=== PATIENT | male | born 1950 | race Caucasian/White ===

== ENCOUNTER 2016-08-08 22:10 | Emergency (ER) | payer MEDICARE ==
[2016-08-08] MEDS ORDERED: NS 0.9% 1000 ML* 1,000 ML IV ONE (23:45)
[2016-08-09 00:13] LABS: Hematocrit 42 % (42-52); Hemoglobin 14.1 g/dl (14.0-18.0); Mean Corpuscular HGB Conc 34 g/dl (31-36); Mean Corpuscular Hemoglobin 32 pg (27-31); Mean Corpuscular Volume 93 fL (80-94); Mean Platelet Volume 9 um3 (7.4-10.4); Red Blood Count 4.48 10^6/ul (4.0-5.4); Red Cell Distribution Width 13 % (10.5-15); White Blood Count 11.3 10^3/ul (3.5-10.8)
[2016-08-09 00:26] LABS: Alcohol < 10 mg/dL (<10)
[2016-08-09 00:28] LABS: ALT 27 U/L (7-52); AST 28 U/L (13-39); Albumin 4.1 g/dL (3.2-5.2); Alkaline Phosphatase 44 U/L (34-104); Anion Gap 8 mmol/L (2-11); BUN/Creatinine Ratio 17.8 (8-20); Blood Urea Nitrogen 18 mg/dL (6-24); CO2 Carbon Dioxide 24 mmol/L (22-32); Calcium 9.3 mg/dL (8.6-10.3); Chloride 104 mmol/L (101-111); Creatine Kinase 472 U/L (10-223); EGFR Non-African American 73.9 (>60); Globulin 3.3 g/dL (2-4); Glucose 124 mg/dL (70-100); Lipase 36 U/L (11.0-82.0); Potassium 3.8 mmol/L (3.5-5.0); Sodium 136 mmol/L (133-145); Total Protein 7.4 g/dL (6.4-8.9)
[2016-08-09] MEDS ORDERED: Iohexol 300* (CONTRAST) 10 ML SDV IV ONE (00:29)
[2016-08-09 00:31] LABS: Troponin I 0.01 ng/mL (<0.04)
[2016-08-09] MEDS ORDERED: oxyCODONE/Acetamin 5/325 MG* TAB PO ONE (01:56)
[2016-08-09 02:02] VITALS: BP 160/86
--- NOTE | 2016-08-09 02:52 | ED ---
Darrin Hubbard Anna, scribed for Arturo Mercado on 08/08/16 at 2353 . Adult Trauma - HPI Summary HPI Summary: Patient is a 66 y/o male coming to [facility] presenting with the sudden onset of constant, right rib pain that began when a 1200 lb cow fell on him this evening. He describes the severity of the pain as 5/10. Denies neck pain, CP, back pain, pelvic pain, ORTIZ, LOC. He reports no medical problems. - History of Current Complaint Chief Complaint: EDTraumaMultiple Stated Complaint: RIB AND RIGHT SIDE PAIN-COW ROLLED ACROSS PT Time Seen by Provider: 08/08/16 23:39 Hx Obtained From: Patient Loss of Consciousness: no loss of consciousness Onset/Duration: Started Hours Ago Onset Severity: Moderate Current Severity: Moderate Pain Intensity: 5 Pain Scale Used: 0-10 Numeric Location: Abdomen/Pelvis Associated Signs & Symptoms: Negative: Loss of Consciousness - Allergy/Home Medications Allergies/Adverse Reactions: Allergies Allergy/AdvReac Type Severity Reaction Status Date / Time No Known Allergies Allergy Verified 01/11/14 10:08 PMH/Surg Hx/FS Hx/Imm Hx Endocrine/Hematology History: Denies: Hx Diabetes Cardiovascular History: Denies: Hx Congestive Heart Failure, Hx Hypertension History: Denies: Hx Renal Disease Infectious Disease History: Denies: Traveled Outside the [place] in Last 30 Days - Family History Known Family History: Negative: Hypertension, Diabetes - Social History Alcohol Use: Occasionally Substance Use Type: Reports: None Smoking Status (MU): Never Smoked Tobacco Review of Systems Negative: Chest Pain Positive: Arthralgia - right rib pain Negative: Headache, Syncope All Other Systems Reviewed And Are Negative: Yes Physical Exam Triage Information Reviewed: Yes Vital Signs On Initial Exam: Initial Vitals Temp Pulse Resp BP Pulse Ox 98.6 F 72 18 129/62 97 08/08/16 22:31 08/08/16 22:31 08/08/16 22:31 08/08/16 22:31 08/08/16 22:31 Vital Signs Reviewed: Yes Appearance: Positive: Well-Appearing, No Pain Distress Skin: Positive: Warm, Skin Color Reflects Adequate Perfusion Head/Face: Positive: Normal Head/Face Inspection Eyes: Positive: EOMI, PIYUSH ENT: Positive: Normal ENT inspection Neck: Positive: Supple, Nontender Respiratory/Lung Sounds: Positive: Clear to Auscultation, Breath Sounds Present Cardiovascular: Positive: RRR Abdomen Description: Positive: Soft, Other: - Tender right chest, RUQ abd, RLQ abd Bowel Sounds: Positive: Present Musculoskeletal: Positive: Normal, Strength/ROM Intact Neurological: Positive: Normal, Sensory/Motor Intact, Alert, Oriented to Person Place, Time Diagnostics - Vital Signs Vital Signs Temp Pulse Resp BP Pulse Ox 08/08/16 22:31 98.6 F 72 18 129/62 97 - Laboratory Result Diagrams: 08/08/16 23:47 08/08/16 23:47 Lab Statement: Any lab studies that have been ordered have been reviewed, and results considered in the medical decision making process. - CT CHEST/ABD/PEL CT CT Interpretation: Positive (See Comments) - IMPRESSION: FRACTURES OF THE FIFTH AND SIXTH ANTERIOR RIBS ON THE RIGHT. NO OTHER TRAUMATIC INJURIES IDENTIFIED IN THE CHEST, ABDOMEN, OR PELVIS. CT Interpretation Completed By: Radiologist - SPIKE MACHINE OPERATOR - EKG 0032 Cardiac Rate: NL - 78 bpm EKG Rhythm: Sinus Rhythm EKG Interpretation: RBBB. No STEMI. Adult Trauma Course/Dx - Course Course Of Treatment: This is a 66 y/o male presenting with right CP. A bufallo fell on top of him. X-rays were done and he has 5th and 6th right rib fractures. He will be diagnosed with 5th and 6th right rib fractures and a contusion of the right chest. He will be sent home with pain medication. - Diagnoses Provider Diagnoses: 5th and 6th right rib fracture, contusion right chest Discharge - Discharge Plan Condition: Stable Disposition: HOME Prescriptions: Ibuprofen TAB* [Motrin TAB* 600 MG] 600 mg PO Q8H PRN #30 tab PRN Reason: Pain oxyCODONE/Acetamin 5/325 MG* [Percocet 5/325 TAB*] 1 tab PO Q8H PRN #21 tab MDD 3 PRN Reason: Pain Patient Education Materials: Rib Fracture (ED) Referrals: No Primary Care Phys,NOPCP [Primary Care Provider] - The documentation as recorded by the Darrin cutler Anna accurately reflects the service I personally performed and the decisions made by , Arturo Mercado.
--- NOTE | 2016-08-09 11:09 | RAD ---
INDICATION: Right rib pain after a 1200 lb cow landed on the patient. COMPARISON: CT abdomen pelvis dated January 11, 2014 TECHNIQUE: Multidetector CT images were obtained from the lung apices to the ischial tuberosities with 148 mL Omnipaque 300IV and oral contrast. CHEST: There are minimally displaced fractures of the third (image 27), fourth (image 35) fifth and sixth (image 41) right ribs. The lungs are grossly clear without nodules, masses or other focal abnormality. There are no significant pleural effusions bilaterally. The heart and thoracic aorta are normal in size and morphology. There is no mediastinal or hilar lymphadenopathy. ABDOMEN \T\ PELVIS: Similar the previous CT examination there are fluid density cyst in the right lobe of the liver. Smaller subcentimeter hypodensities are seen as well but are too small to characterize further. These are also stable. The liver is otherwise homogenous in attenuation but slightly enlarged up to 22.4 cm. There is no evidence of acute traumatic bleed of the liver. The spleen, pancreas and adrenal glands are grossly normal in appearance. Hyperattenuating stones are noted in the dependent gallbladder. The gallbladder is otherwise normal in appearance. The kidneys are normal in appearance without focal mass, calcification or signs of hydronephrosis. The normal air-filled appendix is identified in the right lower quadrant (image 54) The small and large bowel are not distended. There is no gross retroperitoneal or mesenteric lymphadenopathy. The pelvic viscera is normal in appearance. A small fat-containing inguinal hernias noted on the right. The abdominal aorta and iliac arteries are normal in course and diameter. Multilevel degenerative changes of the thoracic and lumbar spine include loss of intervertebral disc height, anterior marginal osteophyte formation and multilevel lumbar vacuum disc phenomenon. IMPRESSION: 1. Minimally displaced fractures involving the anterior lateral right 3rd-6th ribs without CT evidence of solid organ injury or internal hemorrhage. 2. Chronic and degenerative changes as described in the body the report.
== END 2016-08-09 02:45 | disposition home or self-care (01) ==
LOC: ED 22:10
DX: S22.41XA Multiple fractures of ribs, right side, initial encounter for closed fracture (principal); S20.211A Contusion of right front wall of thorax, initial encounter; R07.81 Pleurodynia; W55.22XA Struck by cow, initial encounter; Y93.9 Activity, unspecified; Y92.9 Unspecified place or not applicable; Y99.9 Unspecified external cause status
CPT/HCPCS: 36415; 71260; 74177; 80053; 80320; 82550; 83605; 83690; 84484; 85025; 85610; 86803; 86850; 86900; 86901; 93005; 99283; A9270-GY; G0480; Q9967